=== PATIENT | male | born 1975 | race Caucasian/White ===

== ENCOUNTER → 2022-11-01 | Outpatient (CLI) | payer MEDICAID | END | disposition home or self-care (01) | LOC: RAD 11:28 | PROVIDERS: ATTEND Nurse Practitioner | DX: M47.816 Spondylosis without myelopathy or radiculopathy, lumbar region (principal); M41.87 Other forms of scoliosis, lumbosacral region; M54.31 Sciatica, right side ==

== ENCOUNTER 2022-11-12 17:12 | Emergency (ER) | payer MEDICAID ==
[~2022-11-12] VITALS: Ht 177.8 cm; Wt 92.5 kg
== END 2022-11-12 17:39 | disposition home or self-care (01) ==
LOC: ED 17:12
DX: S60.222A Contusion of left hand, initial encounter (principal); M19.90 Unspecified osteoarthritis, unspecified site; Z87.891 Personal history of nicotine dependence; Z98.890 Other specified postprocedural states; X58.XXXA Exposure to other specified factors, initial encounter; Y93.89 Activity, other specified; Y92.89 Other specified places as the place of occurrence of the external cause; Y99.8 Other external cause status